=== PATIENT | male | born 1980 | race Asian ===

== ENCOUNTER 2019-07-19 10:18 | Emergency (ER) | payer OTHER ==
[~2019-07-19] VITALS: Ht 167.6 cm; Wt 77.1 kg
[2019-07-19 10:30] VITALS: BP 129/81; Ht 167.6 cm; Wt 77.1 kg
== END 2019-07-19 12:09 | disposition home or self-care (01) ==
LOC: ED 10:18
DX: S40.211A Abrasion of right shoulder, initial encounter (principal); V49.9XXA Car occupant (driver) (passenger) injured in unspecified traffic accident, initial encounter; Y93.I9 Activity, other involving external motion; Y92.488 Other paved roadways as the place of occurrence of the external cause; Y99.8 Other external cause status